=== PATIENT | female | born 1930 | race Caucasian/White ===

== ENCOUNTER → 2016-07-15 | Outpatient (CLI) | payer MEDICARE, MEDICAID ==
[~2016-07-15] MED LIST: ALOE VESTA141 GM TOP; COUMADIN2.5 MG PO; KEFLEX500 MG PO; LASIX40 MG PO; LEVAQUIN750 MG PO; MUCINEX600 MG PO; PRINIVIL20 MG PO; PROVENTIL2.5 MG/3 M INH; REQUIP0.5 MG PO; REQUIP1 MG PO; TRIAMCINOLONE A15 GM TOP; TRIAMTERENE-HC1 EAC3 PO; TYLENOL325 MG PO; TYLENOL500 MG PO
== END | disposition short-term general hospital (02) ==
LOC: CLORTH 08:32
DX: S80.01XA Contusion of right knee, initial encounter (principal); Z96.651 Presence of right artificial knee joint